=== PATIENT | male | born 1950 | race Hispanic/Latino ===

== ENCOUNTER 2024-02-15 07:38 | Observation (INO) | payer MEDICARE ==
[2024-02-12 10:42] LABS: BASOPHILS # (AUTO) 0.04 K/uL (0.00-0.20); BASOPHILS % (AUTO) 0.6 % (0.0-5.0); EOSINOPHILS # (AUTO) 0.31 K/uL (0.00-0.70); EOSINOPHILS % (AUTO) 4.8 % (0.0-8.0); HEMATOCRIT 45.2 % (42-54); IMMATURE GRANULOCYTE ABSOLUTE 0.01 K/uL (0-1); LYMPHOCYTES # (AUTO) 2.1 K/uL (1.0-4.8); LYMPHOCYTES % (AUTO) 33.4 % (21.0-51.0); MEAN CORPUSCULAR HEMOGLOBIN 30.6 pg (27.0-33.0); MEAN CORPUSCULAR HGB CONC 34.3 g/dL (32.0-36.0); MEAN CORPUSCULAR VOLUME 89.3 fL (79-99); MONOCYTES # (AUTO) 0.5 K/uL (0.1-1.0); MONOCYTES % (AUTO) 7.8 % (3.0-13.0); NEUTROPHILS # (AUTO) 3.4 K/uL (1.8-7.7); NEUTROPHILS % (AUTO) 53.2 % (40.0-77.0); PLATELET COUNT (AUTO) 338 K/uL (130-400); RED BLOOD CELL COUNT(AUTO) 5.06 MIL/uL (4.50-6.20); RED CELL DISTRIBUTION WIDTH 13.2 % (11.0-15.5); WHITE BLOOD COUNT (AUTO) 6.4 K/uL (4.8-10.8)
--- NOTE | 2024-02-12 10:43 | EKG ---
[facility] Test Date: 2024-02-12 Test Time: 11:27:16 Pat Name: JACKY QUILES Department: [facility] Room: Gender: M Medical Front Desk Coordinator: [id number] : 1950 Requested By: NATHALIE FRANCES Order Number: [id number] Reading MD: Cyrus Tran Measurements Intervals Roy Rate: 63 P: 71 NH: 128 QRS: 26 QRSD: 87 T: 35 QT: 429 QTc: 441 Interpretive Statements Sinus rhythm No previous ECG available for comparison Electronically Signed On 02-12-2024 14:09:34 PRESS TENDER SMOKE SIGNAL by Cyrus Tran Please click the below link to view image of tracing.
[2024-02-12 10:55] LABS: POTASSIUM 4.1 mmol/L (3.5-5.1)
[2024-02-12 10:57] VITALS: BP 108/66; PULSE 71; RESP 18; TEMP 97.3
[2024-02-12 11:01] LABS: INR <= 0.93 (0.85-1.15); PROTHROMBIN TIME 10.3 SEC (9.6-11.6)
[2024-02-12 11:02] LABS: PARTIAL THROMBOPLASTIN TIME 29.6 SEC (26.3-35.5)
[2024-02-14 19:45] VITALS: BP 136/98; PULSE 105; RESP 18; TEMP 99.1
[~2024-02-15] VITALS: Ht 154.9 cm; Wt 62.1 kg
[2024-02-15] VITALS (32 sets, daily range): BP systolic 105–150; BP diastolic 60–93; PULSE 60–104; RESP 13–19; TEMP 96.8–98.4; O2SAT 96
[2024-02-15] MEDS: BUPIvacaine/PF 0.5% 30ML VIAL ONE
[~2024-02-15 07:38] MED LIST: ACET-2743 PO
[2024-02-15] MEDS: LACTATED RINGERS 1000ML 1,000 ML IV ONE (08:27)
[2024-02-15] MEDS: ceFAZolin SODIUM 2 GM VIAL ONE (08:27)
[2024-02-15] MEDS ORDERED: FENTanyl CITRate PF 50 MCG/1 ML 2ML VIAL ONE (09:32)
[2024-02-15] MEDS ORDERED: NEOSTIGMINE METHYLSULFATE 1MG/ML IV ONE (09:32)
[2024-02-15] MEDS ORDERED: proPOFol 10 MG/ML 20ML VIAL IV ONE (09:32)
[2024-02-15] MEDS ORDERED: ondanSETRON 4MG INJ ONE ×2 (09:32→09:50)
[2024-02-15] MEDS ORDERED: GLYCOPYRROLATE 0.2 MG/ML 5 ML VIAL ONE (09:32)
[2024-02-15] MEDS ORDERED: LIDOCAINE PF 100MG/5ML (2%) SYRINGE 5ML ONE (09:33)
[2024-02-15] MEDS ORDERED: MIDAZOLAM HCL 1 MG/ML 2ML VIAL ONE (09:33)
[2024-02-15] MEDS ORDERED: rocuRONium bROMide 10MG/1ML 5ML VL ONE ×2 (09:33→11:04)
[2024-02-15] MEDS ORDERED: dexmedeTOMIDine HCL 200 MCG/2 ML VIAL IV ONE (09:36)
--- NOTE | 2024-02-15 11:51 | OP ---
Operative Note: DATE OF PROCEDURE: 02/15/24 SURGEON: NATHALIE FRANCES MD VENEER CLIPPER HELPER: [] ANESTHESIA: [] General ANESTHESIOLOGIST/DISPLAY ASSOCIATE: [] PREOPERATIVE DIAGNOSIS: [] Bilateral inguinal hernias POSTOPERATIVE DIAGNOSIS: [] The same SYNOPSIS: [] PROCEDURE: [] Open bilateral inguinal hernia repair with mesh ESTIMATED BLOOD LOSS: [] INDICATIONS: [] Patient with longstanding inguinal scrotal hernias gigantic in both size. Decision was to do it open because laparoscopic we will leave a large sac and most likely more chances of hematoma DESCRIPTION OF PROCEDURE: [] With the patient under general anesthesia prepped and draped we started with the left side with was a larger hernia. We did a left lower quadrant incision and using cautery blunt dissection was able to expose the external oblique aponeurosis. I then opened it and identify the inguinal ligament and opened the external inguinal canal opening. Then with bimanual maneuvers I was able to reduce a very large sac. The spermatic cord was easily identified and protected. The sac was opened and I found that there were few small bowel loops and it was a very large sac. After reducing the small bowel loops I then closed the hernia sac and did high ligation. I make guillen re there was no bleeding this time. After this was done I used a keyhole mesh large and I started anchoring to the inguinal ligament and one side into the transversalis fascia and conjoined tendon of the other side using 2-0 Prolene. This was done continuous. The sac was shows reduced and created a new internal ring. After adequate hemostasis I closed the external oblique aponeurosis with 3-0 Vicryl. And the skin with staplers. Attention was done to the right side. I did exactly the same procedure maneuver in the right side this hernia was also largely going to take but slightly less than the left side. At the end of the procedure I injected 30 cc of Marcaine have present in both sides. Sacs were sent for pathology patient did very well and was stable. He will be admitted overnight for observation NATHALIE FRANCES MD Feb 15, 2024 11:51
[2024-02-15] MEDS ORDERED: ondanSETRON 4MG INJ IVP PRN (16:30)
[2024-02-15] MEDS: LACTATED RINGERS 1000ML 1,000 ML IV SCH (16:46)
[2024-02-15] MEDS: ceFAZolin SODIUM 2 GM VIAL IVPB SCH (16:50)
[2024-02-15] MEDS: acetaMINOPHEN WITH coDEINE 1 TAB TAB PO PRN (17:05)
[2024-02-15] MEDS: acetaMINOPHEN 100 ML ONE (17:07)
[2024-02-15] MEDS: PANTOPrazole 40 MG TAB DR PO SCH (18:17)
[2024-02-15] MEDS: morPHINE 4 MG SYG IVP PRN (21:21)
[2024-02-16] VITALS: BP 139/74; PULSE 80; RESP 18; TEMP 98.2
[2024-02-16 04:00] VITALS: BP 115/71; PULSE 83; RESP 18; TEMP 98.3
[2024-02-16 08:00] VITALS: BP 128/67; PULSE 86; RESP 18; TEMP 98.4; O2SAT 96
--- NOTE | 2024-02-16 11:09 | DS ---
Discharge Summary HOSPITAL COURSE SUMMARY: [This is a 74-year-old male postop day one for b ilateral inguinal hernia repair by Dr. Brandon Interval history: This 74-year-old male presented hospital for scheduled inguinal hernia repair underwent open bilateral inguinal with mesh placement. Patient tolerated procedure well. Patient is recovering well. Incisions clean and dry. Patient's pain well tolerated. From surgical standpoint patient is likely to be cleared for discharge today Physical exam General: Awake alert and oriented Heart: Regular rate and rhythm} Lungs: Clear to auscultation no distress Abdomen: [Soft, nontender, nondistended incision sites clean and dry Assessment : This is a 74-year-old male status post bilateral inguinal hernia repair by Dr. Brandon Plan: Patient is cleared for discharge he will be scheduled for follow up in two weeks with Dr. Brandon No heavy lifting of 20 lb Avoid constipation Continue with current pain management Increased water intake Monitor for postoperative infections] MACHINE GUNNER(S): [None] PROCEDURES: [Open bilateral inguinal] PROBLEM(S): [Hernia repair none] DISCHARGE INSTRUCTIONS: [] Follow up in two weeks No heavy lifting Monitor for infection Avoid constipation Home Meds Discontinued Reported Medications Acetaminophen (Tylenol Extra Strength) 500 Mg Tablet, 2 TAB PO Q6HPRN PRN for pain or fever for 7 Days, #56 TAB 0 Refills 02/12/24 Time spent arranging discharge: 1-30 minutes DAINA LEE Jr. Feb 16, 2024 11:09
[2024-02-16 11:30] VITALS: BP 125/77; PULSE 76; RESP 20; TEMP 98
--- NOTE | 2024-02-16 19:29 | NUR ---
NOTE SUMMARY/DC PATIENT ALERT X4 PATIENT WAS DC'D BY DAINA MARTEL CNA DC'D PATIENTS IV WITH CATH STILL IN PLACE AND SHE APPLIED COBAN TAPE ON TOP I EXPLAINED TO PATIENT AND FAMILY MEMBERS AT BEDSIDE TO FOLLOW UP WITH DR FRANCES SCHEDULED I EDUCATED PATIENT AND FAMILY HOW TO DO DRESSING CHANGE, AND CHANGED IT PRIOR TO DC I SUPPLIED PATIENT WITH ABDOMINAL BINDER AND MATERIALS WELL PATIENT WAS TAKEN VIA WHEELCHAIR BY RICCO MARTEL NO COMPLICATIONS
== END 2024-02-16 13:30 | disposition home or self-care (01) ==
LOC: DAH 07:38 → DAHIP 07:39 → DAH 07:39 → 3BH 15:50
PROVIDERS: ADMIT Surgery; ATTEND Surgery
DX: K40.21 Bilateral inguinal hernia, without obstruction or gangrene, recurrent (principal); Z79.899 Other long term (current) drug therapy; Z98.890 Other specified postprocedural states
CPT/HCPCS: 80048; 85025; 85610; 85730; 36415; 93005; 96365; 96375; 49505; 88302; 96376; 96366; A6260; G0378 ×21; A4223 ×2; A4600; A4663; J7120; J3010; J3490 ×4; J2003; J2250; J2704; J2405 ×2; J2270 ×2; J2710; J0665; J0690 ×3; A4930; A4215; A4222; A4221; A4216; C1781